=== PATIENT | female | born 1965 | race Caucasian/White ===

== ENCOUNTER 2019-06-25 11:32 | Emergency (ER) | payer SELFPAY ==
[2019-06-25 12:17] VITALS: BMI 25.6
[2019-06-25 14:36] LABS: BASO % 0.5 % (0-2.0); EOS % 0.2 % (0-4.5); HEMATOCRIT 35.6 % (32.4-45.2); HEMOGLOBIN 10.9 GM/dL (10.7-15.3); LYMPH % 23.6 % (8-40); MCHC 30.5 g/dl (32.0-36.0); MEAN CELL VOLUME 85.4 fl (80-96); MEAN PLT VOLUME 9.1 fl (7.5-11.1); MONO % 6.6 % (3.8-10.2); NEUT % 69.1 % (42.8-82.8); PLATELET COUNT 41 K/MM3 (134-434); RBC 4.17 M/mm3 (3.60-5.2); RDW 17.3 % (11.6-15.6)
[2019-06-25 14:55] LABS: ALBUMIN 3.8 g/dl (3.4-5.0); ALK PHOS 130 U/L (45-117); ANION GAP 8 MMOL/L (8-16); BILIRUBIN,TOTAL 0.3 mg/dL (0.2-1); CALCIUM 9.2 mg/dL (8.5-10.1); CHLORIDE 107 mmol/L (98-107); CO2 24 mmol/L (21-32); CREATININE 0.8 mg/dL (0.55-1.3); GLUCOSE,RANDOM 98 mg/dL (74-106); POTASSIUM 4.2 mmol/L (3.5-5.1); SGOT/AST 44 U/L (15-37); SGPT/ALT 52 U/L (13-61); SODIUM 139 mmol/L (136-145); TOT PROT 7.7 g/dl (6.4-8.2)
--- NOTE | 2019-06-25 15:13 | EKG ---
Test Reason : Blood Pressure : / mmHG Vent. Rate : 074 BPM Atrial Rate : 074 BPM P-R Int : 168 ms QRS Dur : 086 ms QT Int : 422 ms P-R-T Axes : 035 033 034 degrees QTc Int : 468 ms NORMAL SINUS RHYTHM NORMAL ECG NO PREVIOUS ECGS AVAILABLE Confirmed by ROLAND DELACRUZ, VILMA ([id number]) on 06/25/2019 3:12:29 PM Referred By: Confirmed By:VILMA WATKINS MD
[2019-06-25 15:20] LABS: PH,URINE 7.5 (5.0-8.0); URINE APPEARANCE CLEAR; URINE BILIRUBIN NEGATIVE (NEGATIVE); URINE COLOR YELLOW; URINE GLUCOSE (UA) NEGATIVE (NEGATIVE); URINE KETONE NEGATIVE (NEGATIVE); URINE LEUK ESTERASE NEGATIVE (NEGATIVE); URINE NITRITE NEGATIVE (NEGATIVE); URINE PROTEIN NEGATIVE (NEGATIVE); URINE UROBILINOGEN 0.2 mg/dL (0.2-1.0)
--- NOTE | 2019-06-25 15:43 | PDOC ---
Documentation entered by Nidia Greco SCRIBE, acting as scribe for Rhinanon Tompkins MD. Rhiannon Tompkins MD: This documentation has been prepared by the Fannie costello Adrianna, SCRIBE, under my direction and personally reviewed by me in its entirety. I confirm that the documentation accurately reflects all work, treatment, procedures, and medical decision making performed by me. History of Present Illness - General Chief Complaint: Syncope/Near Syncope Stated Complaint: NAUSEA SYNCOPY - History of Present Illness Initial Comments: The patient is a 53 year old female, with a significant PMH of chronic neck and back pain secondary to an injury, who presents to the ED [facility] for evaluation of pre-syncopal episode. Patient was at the clinic earlier today, when she suddenly felt dizzy. She describes it as a room-spinning sensation, and felt as if she was going to pass out. Patient denies LOC or having any procedures done while in the clinic. She checked her BP following the episode, and was found to be hypotensive. Patient endorses nausea, and c-spine/low back pain (chronic, secondary to injury). She reports one similar episode a few months ago while also at a doctors office. Patient denies feeling dizzy while in the ED. Alleriges: NKA, NKDA Surgical History: cholecystectomy Social History: Denies EtOH, tobacco, or illicit drug use Past History - Past Medical History Allergies/Adverse Reactions: Allergies Allergy/AdvReac Type Severity Reaction Status Date / Time No Known Allergies Allergy Verified 06/25/19 12:16 Home Medications: Ambulatory Orders NK [No Known Home Medication] 06/25/19 COPD: No - Surgical History Cholecystectomy: Yes - Psycho Social/Smoking Cessation Hx Smoking History: Never smoked Have you smoked in the past 12 months: No Information on smoking cessation initiated: No Hx Alcohol Use: No Drug/Substance Use Hx: No Review of Systems - Review of Systems Comments:: GENERAL/CONSTITUTIONAL: +S/p presyncopal episode. No fever or chills. No weakness. HEAD, EYES, EARS, NOSE AND THROAT: No change in vision. No ear pain or discharge. No sore throat. CARDIOVASCULAR: No chest pain or shortness of breath. RESPIRATORY: No cough, wheezing, or hemoptysis. GASTROINTESTINAL: No vomiting, diarrhea or constipation. GENITOURINARY: No dysuria, frequency, or change in urination. MUSCULOSKELETAL: +Neck pain. +Low back pain. No joint or muscle swelling or pain. SKIN: No rash NEUROLOGIC: +One episode of room-spinning dizziness that has now resolved. No headache, loss of consciousness, or change in strength/sensation. ENDOCRINE: No increased thirst. No abnormal weight change. HEMATOLOGIC/LYMPHATIC: No anemia, easy bleeding, or history of blood clots. ALLERGIC/IMMUNOLOGIC: No hives or skin allergy. *Physical Exam - Vital Signs Last Vital Signs Temp Pulse Resp BP Pulse Ox 98.7 F 85 18 120/71 100 06/25/19 12:02 06/25/19 12:02 06/25/19 12:02 06/25/19 12:02 06/25/19 12:40 - Physical Exam Comments: GENERAL: AAOx3 The patient is in no acute distress. HEAD: Normal with no signs of trauma. EYES: PERRLA, EOMI, sclera anicteric, conjunctiva clear. ENT: Ears normal, nares patent, oropharynx clear without exudates. Moist mucous membranes. NECK: +Chronic neck pain. Normal range of motion, supple without lymphadenopathy , JVD, or masses. LUNGS: Breath sounds equal, clear to auscultation bilaterally. Nowheezes, and no crackles. HEART:Regular rate and rhythm, normal S1 and S2 without murmur, rub or gallop. ABDOMEN: Soft, nontender, normoactive bowel sounds. No guarding, no rebound. No masses palpable. EXTREMITIES: Normal range of motion, no edema. No clubbing or cyanosis. No erythema, or tenderness. NEUROLOGICAL: Cranial nerves II through XII grossly intact. Normal speech. No focal neurological deficits. MUSCULOSKELETAL: +Chronic back pain. No CVA tenderness SKIN: Warm, Dry, normal turgor, no rashes or lesions noted. ED Treatment Course - LABORATORY CBC & Chemistry Diagram: 06/25/19 14:09 06/25/19 14:09 - ADDITIONAL ORDERS Additional order review: Laboratory Results 06/25/19 06/25/19 15:09 14:09 Sodium 139 Potassium 4.2 Chloride 107 Carbon Dioxide 24 Anion Gap 8 BUN 9.0 Creatinine 0.8 Est GFR (CKD-EPI)AfAm 98.93 Est GFR (CKD-EPI)NonAf 85.36 Random Glucose 98 Calcium 9.2 Total Bilirubin 0.3 AST 44 H ALT 52 Alkaline Phosphatase 130 H Creatine Kinase 996 H Creatine Kinase Index No Result Required. CK-MB (CK-2) < 1.0 Troponin I < 0.02 Total Protein 7.7 Albumin 3.8 Urine Color Yellow Urine Appearance Clear Urine pH 7.5 Ur Specific Ames 1.010 Urine Protein Negative Urine Glucose (UA) Negative Urine Ketones Negative Urine Blood Negative Urine Nitrite Negative Urine Bilirubin Negative Urine Urobilinogen 0.2 Ur Leukocyte Esterase Negative 06/25/19 14:09 RBC 4.17 MCV 85.4 MCHC 30.5 L RDW 17.3 H MPV 9.1 Neutrophils % 69.1 Lymphocytes % 23.6 Monocytes % 6.6 Eosinophils % 0.2 Basophils % 0.5 Medical Decision Making - Medical Decision Making 06/25/19 15:30 Ms Willis Ambriz is a 53 yo F who presents to the ER with a complaint of lightheadedness She was at the doctors office and while there she developed lightheadedness and weakness She felt like she was going to pass out but didn't No falls or head trauma No focal weakness or numbness no headache This has actually happened to her one other time in the doctors office No chest pain or shortenss of breath No recent travel No leg swelling 06/25/19 15:31 EKG: Twelve-lead EKG was personally reviewed. There is normal sinus rhythm. The axis is normal. The intervals are normal. There is no atrial or ventricular hypertrophy. There are no ST or T wave abnormalities. There is normal R wave progression. Impression: Normal 12 lead EKG 06/25/19 15:34 Laboratory Tests 06/25/19 06/25/19 06/25/19 14:09 14:09 15:09 WBC 5.0 Hgb 10.9 Hct 35.6 Plt Count 41 L BUN 9.0 Creatinine 0.8 Creatine Kinase 996 H Troponin I < 0.02 Urine Ketones Negative Urine Blood Negative Ur Leukocyte Esterase Negative No indication for CT head at this time Will discharge to home Will ask pt to follow up with PMD Discharge - Discharge Information Problems reviewed: Yes Clinical Impression/Diagnosis: Pre-syncope Condition: Stable Disposition: HOME - Admission No - Additional Discharge Information Prescription Drug Monitoring Program (I-STOP) results: I-STOP not reviewed - Follow up/Referral Referrals: Aurelio Saez MD [Staff Physician] - - Patient Discharge Instructions Patient Printed Discharge Instructions: DI for Syncope in Adults (Fainting) Additional Instructions: Ms Pedro Thank you for coming in to the ER today Please be sure to follow up with your PMD and your Neurologist/Neurosurgeon Please return to the ER for any other concerns or complaints Please review your labs - Post Discharge Activity Work/Back to School Note: Back to Work
[2019-06-25 15:54] VITALS: BP 118/75; PULSE 80; TEMP 98.2
== END 2019-06-25 16:35 | disposition home or self-care (01) ==
LOC: JER 11:32
DX: R55 Syncope and collapse (principal); G89.29 Other chronic pain
CPT/HCPCS: 36415; 80053; 81003; 82550; 82553; 84484; 85025; 87086; 93005; 93010; 99284-25

== ENCOUNTER 2019-11-07 12:09 | Day surgery (SDC) | payer OTHER ==
[2019-11-07 13:24] VITALS: BMI 26.3
[2019-11-07] MEDS ORDERED: ROPIVACAINE HCL 0.5% 30ML VIAL ONE (14:26)
[2019-11-07] MEDS ORDERED: MIDAZOLAM HCL 2 MG/2 ML SINGLE DOSE VIAL ONE (14:26)
[2019-11-07] MEDS ORDERED: DEXAMETHASONE SOD PHOSPHATE/PF 10 MG/ML SDV ONE (14:26)
--- NOTE | 2019-11-07 14:39 | HP ---
History & Physical Update - History History: No Change - Physical Physical: No Change - Assessment Assessment: No Change - Plan Plan: No Change
[2019-11-07] MEDS ORDERED: IBUPROFEN 400 MG TABLET (FP) PO PRN (14:40)
[2019-11-07] MEDS ORDERED: ceFAZolin SODIUM 1 GM VIAL ONE ×3 (14:54→15:33)
[2019-11-07] MEDS ORDERED: BUPIVACAINE HCL 0.25% 125 MG/50 ML VIAL ONE (15:19)
[2019-11-07] MEDS ORDERED: ONDANSETRON 4 MG/2 ML VIAL ONE (15:33)
[2019-11-07] MEDS ORDERED: DEXAMETHASONE SOD PHOSPHATE 4 MG/1 ML VIAL ONE (15:33)
[2019-11-07] MEDS ORDERED: PROPOFOL 20 ML ONE ×2 (15:34)
[2019-11-07] MEDS ORDERED: oxyCODONE HCL 5 MG TABLET PO PRN ×2 (16:52)
[2019-11-07] MEDS ORDERED: ACETAMINOPHEN 325 MG TABLET (FP) PO PRN (16:52)
[2019-11-07] MEDS ORDERED: ONDANSETRON 4 MG/2 ML VIAL IVPUSH PRN (16:52)
[2019-11-07] MEDS ORDERED: TRIAMCINOLONE ACET 40MG/1ML VIAL ONE (16:55)
[2019-11-07] MEDS ORDERED: TRIAMCINOLONE ACET 40MG/1ML VIAL IM ONE (16:57)
[2019-11-07] MEDS ORDERED: BUPIVACAINE HCL/PF 0.25% (2.5MG/ML) 10 ML VIAL IJ ONE (16:57)
[2019-11-07] MEDS ORDERED: LACTATED RINGERS SOLUTION 1,000 ML IV SCH (17:00)
--- NOTE | 2019-11-07 17:22 | OPR ---
Date of Procedure: 11/07/2019 Procedure: Right Shoulder- 1. Diagnostic arthroscopy. 2. Arthroscopic limited debridement of glenohumeral joint (25325) 4. Arthroscopic subacromial decompression (35614). 5. Distal clavicle resection (37235, append 51 modifier). Preoperative Diagnoses: 1. Rotator cuff tendonitis. 2. Biceps tendon degeneration. 3. Glenohumeral synovitis. 4. AC joint arthrosis Postoperative Diagnoses: 1. Rotator cuff tendonitis. 2. Labral degeneration and fraying. 3. Chondromalacia of the glenohumeral joint. 4. Glenohumeral synovitis. 5. Subacromial bursitis and adhesions. 6. AC joint arthrosis Surgeon: Mart Zuleta DO Assistants: Demario Gan DO Anesthesia: General anesthesia, IV regional with interscalene nerve block Estimated Blood Loss: Minimal Drains: None Total IV Fluids: Per anesthesia record Specimens: None Implants: None Complications: None Disposition: PACU Condition: Hemodynamically stable Indications: Carolin Grady presented to us with chronic right shoulder pain that failed conservative measures. Her symptoms, signs, and imaging were consistent with the above noted diagnoses. She ultimately elected to proceed with surgical intervention after discussion of the risks, benefits, alternatives. We discussed risks including but not limited to, bleeding, pain, infection, scarring, damage to neurovascular structures, blood clots, pulmonary embolus, need for additional surgery, incomplete relief of pain, and incomplete return of function. She expressed understanding and wished to proceed. She underwent preoperative medical evaluation clearance and optimization prior to surgery. Procedure Details: She was identified in the preoperative area. The shoulder was marked as the operative site and consent was completed and confirmed. She was later transferred to the operating room and placed in supine position the operating room. General anesthesia was induced without difficulty. She was repositioned into beach chair with all bony prominences appropriately padded. The neck was in neutral alignment. A surgical time-out was performed identifying the correct patient, procedure, and site. Antibiotics were given within 1 hour prior to surgical incision. The upper extremity was prepped and draped in standard sterile fashion. Examination under anesthesia: Passive range of motion of the right shoulder showed forward elevation of 170, abduction 100, external rotation at side 60, SABER 90, SABIR 40. This was compared to her contralateral shoulder which shows forward elevation of 170, abduction 100 external rotation at side 60, SABER 90, SABIR 40. Diagnostic arthroscopy: We began the procedure with the standard posterolateral portal, entered the glenohumeral joint, and an anterior portal was made within the rotator cuff interval under direct visualization with the assistance of a spinal needle. A probe was used to assist with diagnostic arthroscopy and we visualized from both posteriorly and anteriorly. Evaluation of the glenohumeral joint showed mild to moderate synovitis anteriorly and superiorly. The superior labrum showed fraying that was debrided back to a stable base. The anterior labrum was probed and found to be intact. The posterior labrum was probed and found to be intact. There were no loose bodi es in the inferior pouch. There was no HAGL lesion. The biceps tendon was intact. The rotator cuff interval was normal. The axillary recess was empty. The subscapularis was probed and found to be intact. The rotator cuff was found to be torn from the greater tuberosity. The articular surface of the infraspinatus and teres minor tendons were intact. The glenoid showed no significant chondral defects. The humeral head showed a small area of grade II chondromalacia with no significant chondral defects. Evaluation of the subacromial space showed significant bursitis and adhesions. There was a significant acromial spur anteriorly. There was fraying of the CA ligament. The AC joint was arthritic with spurring and loss of joint space. The rotator cuff was found to be intact. Arthroscopic limited debridement of the glenohumeral joint: We used a combination of the arthroscopic motorized shaver and radiofrequency device to perform a limited debridement inside the glenohumeral joint. The hyperemia, erythema, and synovitis of the joint and joint capsule was focally debrided. Synovitic fronds were thermally ablated. Chondral degeneration was debrided to a stable edge. Labral fraying and degeneration was also resected and debrided to a stable edge. Arthroscopic subacromial decompression: The subacromial space was entered from posteriorly. A separate anterior-lateral portal was made for additional instrumentation and visualization. We then visualized the rotator cuff pattern as noted above, and performed our subacromial decompression in a systematic fashion from anterior to posterior and from lateral to medial, removing the bursal tissue carefully. This was done with a radiofrequency device and m otorized shaver. The undersurface of the acromion was skeletonized and gently debrided to a flat smooth undersurface. There was a significant anterior inferior acromial spur that was resected. Arthroscopic AC joint resection: The AC joint space was narrowed, with arthritic changes including lara-articular osteophytes and sclerosis. We used the anterior and lateral portals for instrumentation. Soft tissue within the AC joint was removed with a motorized shaver and radiofrequency device. We resected the joint by using a barrel khang 4 mm in diameter. 2-3 mm of the medial aspect of the acromion was burred to a flat surface and about 6-7 mm of the lateral end of the clavicle was similarly resected with the khang. The surrounding osteophytes were also resected. The AC joint was stable upon completion of the distal clavicle excision. Approximately 1 cm of space was present between the acromion and clavicle after the resection. Wound closure: The arthroscopic portal incisions were closed with 3-0 Monocryl subcuticular stitch with Steri strips. The shoulder was sterilely dressed, placed in an iceman device over a adry to protect the skin. The arm was placed in a shoulder immobilizer. Post-operative Details: I spoke with the family regarding the operation after surgery. Postoperative rehabilitation: Arthroscopic rotator cuff repair protocol. The patient will remain in a shoulder immobilizer for 2 weeks. Early passive range of motion okay with no limits and advance as tolerated. Strengthening may begin after full range of motion is achieved. Attestation for business banking sales assistant: Dr. Demario Gan acted as the business banking sales assistant. There was no qualified resident or physician dental laboratory assistant available to do so
[2019-11-07 19:10] VITALS: BP 132/72; PULSE 88; TEMP 97.9
--- NOTE | 2019-11-11 17:40 | PATH ---
Surgical Pathology Report Patient Name: EBONIE RAUSCH Med. Rec. #: [id number] /Age/Gender: 1965 (Age: 53) / F Account: [id number] Location: [facility] AMBULATORY Taken: 11/07/2019 Received: 11/07/2019 Reported: 11/11/2019 Physicians: Mart Zuleta DO Specimen(s) Received RIGHT SHOULDER SHAVINGS Clinical History Left shoulder rotator cuff tendinitis Final Diagnosis SHOULDER SHAVINGS, RIGHT, ARTHROSCOPY, SUBACROMIAL DECOMPRESSION, DISTAL CLAVICLE EXCISION: FRAGMENTS OF BENIGN CARTILAGE, BONE, DENSE FIBROCONNECTIVE TISSUE, ADIPOSE TISSUE, AND SKELETAL MUSCLE. Electronically Signed Mira Ward M.D. Gross Description Received in formalin, labeled "right shoulder shavings," is a 4.5 x 4.3 x 0.4 cm. aggregate of casillas-yellow soft tissue fragments. A guest experience representative portion is submitted in one cassette. 11/10/2019 [facility]10[facility]2019
== END 2019-11-07 19:10 | disposition home or self-care (01) ==
LOC: FASU 12:09
PROVIDERS: ATTEND Orthopaedic Surgery
PROC: 0PB94ZZ Excision of Right Clavicle, Percutaneous Endoscopic Approach (ICD-10-PCS; principal; 2019-11-07 15:55)
PROC: 0RNJ4ZZ Release Right Shoulder Joint, Percutaneous Endoscopic Approach (ICD-10-PCS; 2019-11-07 15:55)
DX: M75.81 Other shoulder lesions, right shoulder (principal); M24.111 Other articular cartilage disorders, right shoulder; M94.211 Chondromalacia, right shoulder; M65.811 Other synovitis and tenosynovitis, right shoulder; M75.51 Bursitis of right shoulder; M19.011 Primary osteoarthritis, right shoulder
CPT/HCPCS: 84703; 88304-TC; 94760

== ENCOUNTER 2020-07-08 04:21 | Inpatient (IN) | payer OTHER ==
[2020-07-07 19:10] VITALS: BMI 28.3
[~2020-07-08 04:21] MED LIST: BUPIVACAINE HCL/PF 0.5% (5MG/ML) 10 ML VIAL IJ ONE; BUPIVACAINE LIPOSOME/PF (EXPAREL) 266 MG/20 ML VIAL NR ONE
[2020-07-08] MEDS ORDERED: VANCOMYCIN 1 GRAM (PRE-DOCKED) 1,000 MG/250 ML BAG IVPB ONE (06:26)
[2020-07-08] MEDS ORDERED: CEFAZOLIN 2 GM in DEXTROSE 5%-WATER - 100 ML IVPB ONE (06:26)
[2020-07-08] MEDS ORDERED: DEXAMETHASONE SOD PHOSPHATE 4 MG/1 ML VIAL ONE (11:58)
[2020-07-08] MEDS ORDERED: fentaNYL CITRATE 250 MCG/5 ML VIAL ONE (11:58)
[2020-07-08] MEDS ORDERED: LIDOCAINE HCL/PF 2% SDV 5ML VIAL ONE (11:58)
[2020-07-08] MEDS ORDERED: MIDAZOLAM HCL 2 MG/2 ML SINGLE DOSE VIAL ONE (11:58)
[2020-07-08] MEDS ORDERED: ONDANSETRON 4 MG/2 ML VIAL ONE (11:58)
[2020-07-08] MEDS ORDERED: PROPOFOL 20 ML ONE (11:58)
[2020-07-08] MEDS ORDERED: ROCURONIUM BROMIDE 50 MG/5 ML SYRINGE ONE (11:58)
[2020-07-08] MEDS ORDERED: GENTAMICIN SO4 80 MG/2 ML VIAL ONE (12:41)
[2020-07-08] MEDS ORDERED: LIDOCAINE 1%/EPI 1:100000 (50 ML MULTI DOSE VIAL) ONE (12:42)
[2020-07-08] MEDS ORDERED: THROMBIN (BOVINE) 20,000 UNIT VIAL TP ONE (13:21)
[2020-07-08] MEDS ORDERED: ceFAZolin SODIUM 1 GM VIAL IVPB ONE (14:00)
[2020-07-08] MEDS ORDERED: VANCOMYCIN 1,000 MG VIAL (RESTRICTED TO ID ONLY) IVPB ONE (14:10)
[2020-07-08] MEDS ORDERED: THROMBIN (BOVINE) 5,000 UNIT VIAL TP ONE (14:55)
[2020-07-08] MEDS ORDERED: HYDROGEN PEROXIDE 473 ML PO ONE (14:56)
[2020-07-08] MEDS ORDERED: GENTAMICIN SO4 80 MG/2 ML VIAL IVPB ONE (14:56)
[2020-07-08] MEDS ORDERED: BACITRACIN 50,000 UNITS VIAL TP ONE (14:56)
[2020-07-08] MEDS ORDERED: BUPIVACAINE LIPOSOME/PF (EXPAREL) 266 MG/20 ML VIAL NR ONE (15:23)
[2020-07-08] MEDS ORDERED: BUPIVACAINE HCL/PF 0.5% (5MG/ML) 10 ML VIAL IJ ONE (15:23)
[2020-07-08] MEDS ORDERED: NEOSTIGMINE METHYLSULFATE 0.5 MG/1 ML - 10 ML MDV ONE (15:24)
[2020-07-08] MEDS ORDERED: GLYCOPYRROLATE 0.2 MG/1 ML VIAL ONE (15:24)
[2020-07-08] MEDS ORDERED: diphenhydrAMINE HCL 25 MG CAPSULE (FP) PO PRN (15:56)
[2020-07-08] MEDS ORDERED: LACTATED RINGERS SOLUTION 1,000 ML/1,000 ML INFUS.BAG IV SCH (16:00)
[2020-07-08] MEDS ORDERED: IBUPROFEN 800 MG/8 ML IJ IVPB PRN (16:09)
[2020-07-08] MEDS: ACETAMINOPHEN 1000 MG/100 ML VIAL (NON FORMULARY) IVPB SCH (16:15)
[2020-07-08] MEDS ORDERED: ONDANSETRON 4 MG/2 ML VIAL IVPUSH PRN (16:38)
[2020-07-08] MEDS ORDERED: ACETAMINOPHEN INJECTION 100 ML IVPB ONE (16:50)
[2020-07-08] MEDS ORDERED: CEFAZOLIN 1 GM/D5W 1 GM/50 ML BAG IVPB SCH (18:00)
[2020-07-08] MEDS ORDERED: DEXTROSE 5%-WATER - 50 ML IVPB ONE (18:20)
[2020-07-08] MEDS ORDERED: ceFAZolin SODIUM 1 GM VIAL ONE (18:20)
[2020-07-08] MEDS: CEFAZOLIN 1 GM in DEXTROSE 5%-WATER - 50 ML IVPB SCH (18:21)
[2020-07-08] MEDS ORDERED: INSULIN (NOVOLOG) ASPART 100 UNITS/ML 10ML VIAL ONE (22:14)
[2020-07-08] MEDS: DOCUSATE SODIUM 100 MG CAPSULE (FP) PO SCH (22:19)
[2020-07-08] MEDS: INSULIN SLIDING SCALE (NOVOLOG) 1 VIAL SQ SCH (22:22)
[2020-07-09] MEDS ORDERED: ceFAZolin SODIUM 1 GM VIAL ONE ×2 (01:35→09:20)
[2020-07-09] MEDS ORDERED: DEXTROSE 5%-WATER - 50 ML IVPB ONE ×2 (01:36→09:21)
[2020-07-09] MEDS: CEFAZOLIN 1 GM in DEXTROSE 5%-WATER - 50 ML IVPB SCH ×2 (01:45→09:38)
[2020-07-09] MEDS: ACETAMINOPHEN 1000 MG/100 ML VIAL (NON FORMULARY) IVPB SCH ×3 (03:22→14:02)
[2020-07-09] MEDS: DOCUSATE SODIUM 100 MG CAPSULE (FP) PO SCH ×2 (06:39→13:41)
[2020-07-09] MEDS: INSULIN SLIDING SCALE (NOVOLOG) 1 VIAL SQ SCH ×2 (06:43→11:29)
[2020-07-09 08:09] LABS: HEMATOCRIT 40.8 % (32.4-45.2); HEMOGLOBIN 13.1 GM/dL (10.7-15.3); MCH 27.6 pg (25.7-33.7); MEAN CELL VOLUME 86.1 fl (80-96); MEAN PLT VOLUME 8.7 fl (7.5-11.1); PLATELET COUNT 267 K/MM3 (134-434); RBC 4.74 M/mm3 (3.60-5.2); RDW 14.4 % (11.6-15.6); WHITE BLOOD COUNT 13.9 K/mm3 (4.0-10.0)
[2020-07-09] MEDS ORDERED: amLODIPine BESYLATE 5 MG TABLET (FP) PO SCH (10:00)
[2020-07-09] MEDS ORDERED: FOLIC ACID 1 MG TABLET (FP) PO SCH (10:00)
[2020-07-09 15:44] VITALS: BP 123/84; PULSE 95; TEMP 99.2
== END 2020-07-09 15:56 | disposition home or self-care (01) | DRG 321 ==
LOC: J2C 04:21 → J8W 17:50
PROVIDERS: ADMIT Internal Medicine; ATTEND Internal Medicine
PROC: 00NW0ZZ Release Cervical Spinal Cord, Open Approach (ICD-10-PCS; 2020-07-08)
PROC: 01N10ZZ Release Cervical Nerve, Open Approach (ICD-10-PCS; 2020-07-08)
PROC: B01BZZZ Fluoroscopy of Spinal Cord (ICD-10-PCS; 2020-07-08)
PROC: 0PS304Z Reposition Cervical Vertebra with Internal Fixation Device, Open Approach (ICD-10-PCS; 2020-07-08)
PROC: 0JX70ZZ Transfer Back Subcutaneous Tissue and Fascia, Open Approach (ICD-10-PCS; 2020-07-08)
PROC: 0RG1071 Fusion of Cervical Vertebral Joint with Autologous Tissue Substitute, Posterior Approach, Posterior Column, Open Approach (ICD-10-PCS; principal; 2020-07-08 12:00)
DX: M47.12 Other spondylosis with myelopathy, cervical region (principal); M47.22 Other spondylosis with radiculopathy, cervical region; M40.292 Other kyphosis, cervical region; E11.9 Type 2 diabetes mellitus without complications; I10 Essential (primary) hypertension; E78.5 Hyperlipidemia, unspecified
CPT/HCPCS: 36415; 72125-TC; 76000-TC-FY; 80061; 82962; 83036; 83721; 84443; 84703; 85027; 86850; 86900; 86901; 86922; 94760; 97116-GP; 97161-GP; J0131

== ENCOUNTER 2022-11-19 13:32 | Emergency (ER) | payer OTHER ==
[2022-11-19 13:38] VITALS: BMI 29.5
[2022-11-19] MEDS ORDERED: KETOROLAC TROMETHAMINE 30 MG/1 ML VIAL IM ONE (14:22)
[2022-11-19] MEDS ORDERED: KETOROLAC TROMETHAMINE 30 MG/1 ML VIAL ONE (14:41)
[2022-11-19 14:49] LABS: HEMATOCRIT 40.2 % (32.4-45.2); HEMOGLOBIN 13.5 GM/dL (10.7-15.3); MCH 28.6 pg (25.7-33.7); MCHC 33.5 g/dl (32.0-36.0); MEAN CELL VOLUME 85.4 fl (80-96); MEAN PLT VOLUME 8.1 fl (7.5-11.1); PLATELET COUNT 275 10^3/uL (134-434); RBC 4.71 M/mm3 (3.60-5.2); RDW 14.3 % (11.6-15.6); WHITE BLOOD COUNT 8.1 K/mm3 (4.0-10.0)
[2022-11-19 15:15] LABS: ACTIVATED PTT 33.2 SECONDS (25.2-36.5); INR 1.05 (0.83-1.09); PROTHROMBIN TIME (PATIENT) 12.2 SEC (9.7-13.0)
[2022-11-19 15:20] LABS: BLOOD UREA NITROGEN 11.9 mg/dL (7-18); CALCIUM 9.3 mg/dL (8.5-10.1)
[2022-11-19 15:21] LABS: ALBUMIN 3.6 g/dl (3.4-5.0)
[2022-11-19 15:24] LABS: CREATININE 0.6 mg/dL (0.55-1.3)
[2022-11-19 15:25] LABS: BILIRUBIN,TOTAL 0.6 mg/dL (0.2-1); TOT PROT 7.3 g/dl (6.4-8.2)
[2022-11-19 17:45] LABS: EPI CELLS 5 /uL (0-25.1); HYALINE CASTS 0 /uL (0-3.1); URINE APPEARANCE CLEAR; URINE BACTERIA 4 /uL (0-1359); URINE BILIRUBIN NEGATIVE (NEGATIVE); URINE COLOR YELLOW; URINE GLUCOSE (UA) NEGATIVE (NEGATIVE); URINE KETONE NEGATIVE (NEGATIVE); URINE LEUK ESTERASE NEGATIVE (NEGATIVE); URINE NITRITE NEGATIVE (NEGATIVE); URINE PROTEIN NEGATIVE (NEGATIVE); URINE RBC 607 /uL (0-23.9); URINE UROBILINOGEN 0.2 mg/dL (0.2-1.0); URINE WBC 2 /uL (0-25.8)
[2022-11-19 18:16] VITALS: BP 141/88; PULSE 67; RESP 16; TEMP 98.1
== END 2022-11-19 18:16 | disposition home or self-care (01) ==
LOC: JER 13:32
PROC: 3E0233Z Introduction of Anti-inflammatory into Muscle, Percutaneous Approach (ICD-10-PCS; principal; 2022-11-19)
DX: D25.9 Leiomyoma of uterus, unspecified (principal); N95.0 Postmenopausal bleeding
CPT/HCPCS: 36415; 76830-TC; 80053; 81003; 85027; 85610; 85730; 86850; 86900; 86901; 99284-25

== ENCOUNTER 2022-11-22 05:25 | Day surgery (SDC) | payer OTHER ==
[2022-11-20 14:28] VITALS: BMI 28.5
[2022-11-22] MEDS ORDERED: PROPOFOL 20 ML ONE ×2 (11:04→11:14)
[2022-11-22] MEDS ORDERED: SUCCINYLCHOLINE CHLORIDE 200 MG/10 ML SYRINGE ONE (11:04)
[2022-11-22] MEDS ORDERED: TRIAMCINOLONE ACET 40MG/1ML VIAL ONE (11:19)
[2022-11-22] MEDS ORDERED: ceFAZolin SODIUM 1 GM VIAL IVPB ONE (11:21)
[2022-11-22] MEDS ORDERED: TRIAMCINOLONE ACET 40MG/1ML VIAL IM ONE (11:30)
[2022-11-22] MEDS ORDERED: DEXAMETHASONE SOD PHOSPHATE 4 MG/1 ML VIAL ONE (11:44)
[2022-11-22] MEDS ORDERED: KETOROLAC TROMETHAMINE 30 MG/1 ML VIAL ONE (11:44)
[2022-11-22] MEDS ORDERED: ONDANSETRON 4 MG/2 ML VIAL ONE (11:44)
[2022-11-22] MEDS ORDERED: ROCURONIUM BROMIDE 50 MG/5 ML SYRINGE ONE (11:48)
[2022-11-22] MEDS ORDERED: NEOSTIGMINE METHYLSULFATE 0.5 MG/1 ML - 10 ML MDV ONE (12:00)
[2022-11-22] MEDS ORDERED: GLYCOPYRROLATE 0.2 MG/1 ML VIAL ONE ×2 (12:00)
[2022-11-22] MEDS ORDERED: ONDANSETRON 4 MG/2 ML VIAL IVPUSH PRN (12:24)
[2022-11-22] MEDS ORDERED: oxyCODONE HCL 5 MG TABLET PO PRN (12:24)
[2022-11-22 14:04] VITALS: RESP 18
[2022-11-22 14:45] VITALS: BP 125/73; PULSE 72; TEMP 97.7
== END 2022-11-22 14:47 | disposition home or self-care (01) ==
LOC: JASU-SURG 05:25
PROVIDERS: ATTEND Specialist
PROC: 0UJ84ZZ Inspection of Fallopian Tube, Percutaneous Endoscopic Approach (ICD-10-PCS; principal; 2022-11-22 10:00)
PROC: 0UB98ZZ Excision of Uterus, Via Natural or Artificial Opening Endoscopic (ICD-10-PCS; 2022-11-22 10:00)
DX: N92.1 Excessive and frequent menstruation with irregular cycle (principal); D25.0 Submucous leiomyoma of uterus; N84.0 Polyp of corpus uteri; N73.6 Female pelvic peritoneal adhesions (postinfective); R10.2 Pelvic and perineal pain
CPT/HCPCS: 81025; 88305-TC; 94760

== ENCOUNTER 2023-01-31 04:02 | Inpatient (IN) | payer OTHER ==
[2023-01-30 08:50] VITALS: BMI 26.9
[2023-01-31] MEDS ORDERED: MIDAZOLAM HCL 2 MG/2 ML SINGLE DOSE VIAL ONE (06:54)
[2023-01-31] MEDS ORDERED: KETAMINE HCL 500 MG/10 ML VIAL ONE (06:54)
[2023-01-31] MEDS ORDERED: ROCURONIUM BROMIDE 50 MG/5 ML SYRINGE ONE (06:55)
[2023-01-31] MEDS ORDERED: PROPOFOL 80 ML ONE (06:55)
[2023-01-31] MEDS ORDERED: BUPIVACAINE HCL/PF 0.25% (2.5MG/ML) 10 ML VIAL ONE ×2 (07:23→08:00)
[2023-01-31] MEDS ORDERED: DEXMEDETOMIDINE HCL 200 MCG/2 ML IVPB ONE (07:24)
[2023-01-31] MEDS ORDERED: GABAPENTIN 300 MG CAPSULE PO ONE (07:33)
[2023-01-31] MEDS ORDERED: ACETAMINOPHEN 1000 MG/100 ML BAG IVPB ONE (07:33)
[2023-01-31] MEDS ORDERED: TRANEXAMIC ACID 1000 MG/10 ML VIAL IVPUSH ONE (07:33)
[2023-01-31] MEDS ORDERED: ceFAZolin SODIUM 1 GM VIAL IVPB ONE (09:13)
[2023-01-31] MEDS ORDERED: oxyCODONE HCL 5 MG TABLET PO PRN ×4 (11:08→14:46)
[2023-01-31] MEDS ORDERED: BISACODYL 5 MG TABLET.DR (FP) PO PRN (11:08)
[2023-01-31] MEDS ORDERED: ONDANSETRON 4 MG/2 ML VIAL IVPUSH PRN ×2 (11:08→14:29)
[2023-01-31] MEDS ORDERED: HYDROmorphone HCl 2 MG/ML VIAL ONE (12:30)
[2023-01-31] MEDS ORDERED: HYDROmorphone HCl 2 MG/ML VIAL IVPUSH ONE ×2 (12:32→12:42)
[2023-01-31] MEDS ORDERED: HYDROmorphone HCl 2 MG/ML VIAL IVPUSH PRN (12:57)
[2023-01-31] MEDS: LACTATED RINGERS SOLUTION 1,000 ML IV SCH (13:48)
[2023-01-31] MEDS ORDERED: HYDROmorphone HCl 2 MG/ML VIAL IVPB ONE (14:33)
[2023-01-31] MEDS: HYDROmorphone *PCA* 10MG/50ML DISP.SYRIN PCA SCH (15:30)
[2023-01-31] MEDS ORDERED: CEFAZOLIN 1 GM in DEXTROSE 5%-WATER - 50 ML IVPB SCH (16:00)
[2023-01-31 16:41] LABS: HIV INTERPRETATION NEGATIVE (NEGATIVE)
[2023-01-31] MEDS ORDERED: ACETAMINOPHEN 325 MG TABLET (FP) PO SCH (17:00)
[2023-01-31] MEDS ORDERED: IBUPROFEN 800 MG/8 ML IJ IVPB PRN (17:00)
[2023-01-31] MEDS: ACETAMINOPHEN 500 MG TABLET (FP) PO SCH (17:14)
[2023-02-01] MEDS ORDERED: CEFAZOLIN 1 GM in DEXTROSE 5%-WATER - 50 ML IVPB SCH
[2023-02-01] MEDS: ACETAMINOPHEN 500 MG TABLET (FP) PO SCH ×3 (00:35→16:26)
[2023-02-01] MEDS: CEFAZOLIN 2 GM in DEXTROSE 5%-WATER - 100 ML IVPB ONE ×2 (01:38→06:55)
[2023-02-01] MEDS: SIMETHICONE 80 MG TAB.CHEW (FP) PO PRN ×2 (05:50→09:55)
[2023-02-01 08:47] LABS: HEMATOCRIT 34.8 % (32.4-45.2); HEMOGLOBIN 11.6 GM/dL (10.7-15.3); MCH 28.7 pg (25.7-33.7); MCHC 33.4 g/dl (32.0-36.0); MEAN CELL VOLUME 86.1 fl (80-96); MEAN PLT VOLUME 9.3 fl (7.5-11.1); PLATELET COUNT 241 10^3/uL (134-434); RBC 4.04 M/mm3 (3.60-5.2); RDW 13.9 % (11.6-15.6); WHITE BLOOD COUNT 10.3 K/mm3 (4.0-10.0)
[2023-02-01] MEDS: DOCUSATE SODIUM 100 MG CAPSULE (FP) PO PRN (09:55)
[2023-02-01] MEDS: LACTATED RINGERS SOLUTION 1,000 ML IV SCH (12:05)
[2023-02-01] MEDS ORDERED: IBUPROFEN 600 MG TABLET (FP) PO PRN (12:30)
[2023-02-01] MEDS: HYDROmorphone *PCA* 10MG/50ML DISP.SYRIN PCA SCH (13:39)
[2023-02-02] MEDS: DOCUSATE SODIUM 100 MG CAPSULE (FP) PO PRN (01:20)
[2023-02-02] MEDS: ACETAMINOPHEN 500 MG TABLET (FP) PO SCH ×2 (01:32→08:46)
[2023-02-02 08:58] VITALS: RESP 20
[2023-02-02 11:56] VITALS: BP 145/80; PULSE 95
[2023-02-02 11:57] VITALS: TEMP 98.5
[2023-02-02] MEDS: LACTATED RINGERS SOLUTION 1,000 ML IV SCH (12:22)
== END 2023-02-02 13:09 | disposition home or self-care (01) | DRG 519 ==
LOC: J2C 04:02 → J8W 13:39
PROVIDERS: ADMIT Specialist; ATTEND Specialist
PROC: 0UT20ZZ Resection of Bilateral Ovaries, Open Approach (ICD-10-PCS; 2023-01-31)
PROC: 0DNW0ZZ Release Peritoneum, Open Approach (ICD-10-PCS; 2023-01-31)
PROC: 0DBU0ZZ Excision of Omentum, Open Approach (ICD-10-PCS; 2023-01-31)
PROC: 0UT90ZZ Resection of Uterus, Open Approach (ICD-10-PCS; principal; 2023-01-31 08:00)
PROC: 0UT70ZZ Resection of Bilateral Fallopian Tubes, Open Approach (ICD-10-PCS; 2023-01-31 08:00)
DX: D25.9 Leiomyoma of uterus, unspecified (principal); N73.6 Female pelvic peritoneal adhesions (postinfective); N84.0 Polyp of corpus uteri
CPT/HCPCS: 36415; 80053; 84460; 85025; 85027; 85610; 86803; 86850; 86900; 86901; 87340; 87389; 88305-TC; 88307-TC; 94760; C9803-CS; U0003; U0005